=== PATIENT | male | born 1990 | race Caucasian/White ===

== ENCOUNTER 2016-06-30 00:02 | Emergency (ER) | payer OTHER ==
[~2016-06-30] VITALS: Ht 170.2 cm; Wt 70.0 kg
[2016-06-30 00:06] VITALS: TEMP 36.3; Ht 170.2 cm; Wt 70.0 kg
[2016-06-30] MEDS ORDERED: ONDANSETRON INJ 2 MG/ML 2 ML VIAL IV STA (00:18)
[2016-06-30] MEDS ORDERED: SODIUM CHLORIDE 0.9% 1000ML 1,000 ML IV ONE (00:30)
[2016-06-30] MEDS ORDERED: ONDANSETRON 8 MG/54 ML D5W ONE (00:34)
[2016-06-30 00:41] LABS: BASO % 0.3 %; BASO ABS # 0.03 K/uL (0-0.2); COMPLETE YES; EOS % 4.9 %; HEMATOCRIT 40.3 % (42-52); IG% 0.1 %; LYMPH % 49.7 %; LYMPH ABS # 4.33 K/uL (1.2-3.4); MEAN CELL VOLUME 88.8 fL (80-100); MEAN CORPUSCULAR HEMOGLOBIN 30.4 pg (25-34); MEAN CORPUSCULAR HGB CONC 34.2 g/dl (32-36); MEAN PLATELET VOLUME 9.4 fL (7.4-10.4); MONO % 6.8 %; NEUT % 38.2 %; PLATELET COUNT 260 K/uL (130-400); RED BLOOD COUNT 4.54 M/uL (4.7-6.1); WHITE BLOOD COUNT 8.72 K/uL (4.8-10.8)
[2016-06-30 00:50] LABS: PARTIAL THROMBOPLASTIN RATIO 0.9; PROTHROMBIN TIME (PATIENT) 10.6 SECONDS (9.0-12.0)
[2016-06-30 01:07] LABS: BUN/CREATININE RATIO 10.2 (10-20); CALCIUM 8.8 mg/dl (8.5-10.1); POTASSIUM 3.3 mmol/L (3.5-5.1)
[2016-06-30 01:10] LABS: ALB/GLOB RATIO 1.1 (0.9-2)
[2016-06-30] MEDS ORDERED: RANI150T3 PO (01:24)
[2016-06-30] MEDS ORDERED: CETI10TA84 PO (01:24)
[2016-06-30] MEDS ORDERED: AMPH12.5 PO (01:24)
[2016-06-30] MEDS ORDERED: ONDANSETRON HOME PACK 4MG OD TAB PO ONE (02:00)
[2016-06-30] MEDS ORDERED: NORCO 5/325MG HOME PACK PO ONE (02:00)
[2016-06-30 02:28] VITALS: BP 105/75; PULSE 52; O2SAT 99
--- NOTE | 2016-06-30 07:02 | DIAGNOSTIC IMAGING REPORT ---
CT OF THE HEAD WITHOUT CONTRAST CLINICAL HISTORY: Head injury. Vomiting COMPARISON STUDY: No previous studies for comparison. CT DOSE: 537.48 mGy.cm TECHNIQUE: Helical axial images of the head were obtained without IV contrast. Automated exposure control was utilized for the study. FINDINGS: No acute intracranial hemorrhage, midline shift or mass effect is present. Ventricular system is normal. Basilar cisterns are patent. There are no extra-axial collections. Michaud-white differentiation is maintained. There is no calvarial fracture. There is mild mucosal thickening of the ethmoid sinuses. IMPRESSION: 1. No acute intracranial findings. 2. No calvarial fracture. Electronically signed by: Georges Guerrero M.D. 06/30/2016 7:00 AM Dictated Date/Time: 06/30/2016 6:59 AM
--- NOTE | 2016-06-30 07:10 | EMERGENCY ROOM VISIT NOTE ---
History First contact with patient: 00:12 Chief Complaint: FALL Stated Complaint: FELL,DISORIENTED,POSSIBLE HEAD INJURY History of Present Illness The patient is a 25 year old male who presents to the Emergency Room with complaints of head injury after falling at home. The patient was evidently in the bathroom, when he slipped, fell, and struck his head. He is accompanied by his parents, who heard the fall, and immediately were able to attend to the patient. There was no loss of consciousness reported. The patient feels disoriented and nauseated. He does not have neck, chest, or extremity pain. He does not have lightheadedness, dizziness, chest pain, or palpitations before or after the event. He does not have a history of head injury in the past. He rates his current discomfort a 7/10 and nonradiating. Review of Systems More than 10 systems were reviewed and otherwise negative with the exception of history of present illness. Past Medical/Surgical History No chronic medical disease Family History No pertinent family history Social History Smoking Status: Never Smoker Housing Status: lives with family Current/Historical Medications Scheduled Amphetamine-Dextroamphetamine (Adderall), 1 TAB PO DAILY Cetirizine (Zyrtec), 10 MG PO DAILY Ranitidine Hcl (Zantac), 150 MG PO DAILY Allergies Coded Allergies: Peanut (Verified Allergy, Unknown, + TESTING, 06/30/16) Uncoded Allergies: MOLD (Allergy, Unknown, + TESTING, 06/30/16) Physical Exam Vital Signs Date Time Temp Pulse Resp B/P Pulse Ox O2 Delivery O2 Flow Rate FiO2 06/30/16 02:28 52 16 105/75 99 Room Air 06/30/16 01:20 66 20 103/69 100 Room Air 06/30/16 00:06 36.3 80 16 98/67 97 Room Air Pain Rating (0-10): 0 Physical Exam VITALS: Vitals are noted on the nurse's note and reviewed by myself. Vital signs stable. GENERAL: Well-developed, well-nourished, white male who is actively vomiting on my presentation to the emergency room. HEAD: Normocephalic atraumatic. EARS: External ear normal. External auditory canals clear, tympanic membranes pearly andrew without erythema or effusion bilaterally. EYES: Pupils equal round and reactive to light and accommodation. Conjunctivae without injection, sclerae without icterus. Extraocular movements intact. NOSE: Patent, turbinates without inflammation or discharge. MOUTH: Mucous membranes moist. Tonsils are not enlarged. Pharynx without erythema, blood, or exudate. Uvula midline. Airway patent. NECK: Supple without nuchal rigidity. No lymphadenopathy. No thyromegaly. Cervical spine is nontender. HEART: Regular rate and rhythm without murmurs gallops or rubs. LUNGS: Clear to auscultation bilaterally without wheezes, rales or rhonchi. No retractions or accessory muscle use. ABDOMEN: Positive normal bowel sounds x 4. Soft, nontender, without masses or organomegaly. No guarding or rebound tenderness. Medical Decision & Procedures ER Provider Diagnostic Interpretation: Preliminary Findings Only See Final Report For Complete Findings CT HEAD: No acute intracranial hemorrhage or mass effect. No displaced skull fracture. Trace mucosal thickening in ethmoid air cells. Laboratory Results 06/30/16 00:30 Red Blood Count 4.54, Mean Corpuscular Volume 88.8, Mean Corpuscular Hemoglobin 30.4, Mean Corpuscular Hemoglobin Concent 34.2, Mean Platelet Volume 9.4, Neutrophils (%) (Auto) 38.2, Lymphocytes (%) (Auto) 49.7, Monocytes (%) (Auto) 6.8, Eosinophils (%) (Auto) 4.9, Basophils (%) (Auto) 0.3, Neutrophils # (Auto) 3.33, Lymphocytes # (Auto) 4.33, Monocytes # (Auto) 0.59, Eosinophils # (Auto) 0.43, Basophils # (Auto) 0.03 06/30/16 00:30 Test 06/30/16 00:30 White Blood Count 8.72 K/uL (4.8-10.8) Red Blood Count 4.54 M/uL (4.7-6.1) Hemoglobin 13.8 g/dL (14.0-18.0) Hematocrit 40.3 % (42-52) Mean Corpuscular Volume 88.8 fL (80-100) Mean Corpuscular Hemoglobin 30.4 pg (25-34) Mean Corpuscular Hemoglobin Concent 34.2 g/dl (32-36) Platelet Count 260 K/uL (130-400) Mean Platelet Volume 9.4 fL (7.4-10.4) Neutrophils (%) (Auto) 38.2 % Lymphocytes (%) (Auto) 49.7 % Monocytes (%) (Auto) 6.8 % Eosinophils (%) (Auto) 4.9 % Basophils (%) (Auto) 0.3 % Neutrophils # (Auto) 3.33 K/uL (1.4-6.5) Lymphocytes # (Auto) 4.33 K/uL (1.2-3.4) Monocytes # (Auto) 0.59 K/uL (0.11-0.59) Eosinophils # (Auto) 0.43 K/uL (0-0.5) Basophils # (Auto) 0.03 K/uL (0-0.2) RDW Standard Deviation 40.7 fL (36.4-46.3) RDW Coefficient of Variation 12.7 % (11.5-14.5) Immature Granulocyte % (Auto) 0.1 % Immature Granulocyte # (Auto) 0.01 K/uL (0.00-0.02) Prothrombin Time 10.6 SECONDS (9.0-12.0) Prothromb Time International Ratio 1.0 (0.9-1.1) Activated Partial Thromboplast Time 23.0 SECONDS (21.0-31.0) Partial Thromboplastin Ratio 0.9 Anion Gap 9.0 mmol/L (3-11) Est Creatinine Clear Calc Drug Dose 104.7 ml/min Estimated GFR () 119.9 Estimated GFR (Non- 103.4 BUN/Creatinine Ratio 10.2 (10-20) Calcium Level 8.8 mg/dl (8.5-10.1) Total Bilirubin 0.2 mg/dl (0.2-1) Aspartate Amino Transf (AST/SGOT) 12 U/L (15-37) Alanine Aminotransferase (ALT/SGPT) 26 U/L (12-78) Alkaline Phosphatase 92 U/L (45-117) Total Protein 7.8 gm/dl (6.4-8.2) Albumin 4.0 gm/dl (3.4-5.0) Globulin 3.8 gm/dl (2.5-4.0) Albumin/Globulin Ratio 1.1 (0.9-2) Medications Administered Medications (Trade) Dose Ordered Sig/Lia Route Start Time Stop Time Status Last Admin Dose Admin Sodium Chloride (Nss 1000ml) 1,000 ml @ 999 mls/hr Q1H1M ONCE IV 06/30/16 00:30 06/30/16 01:30 DC 06/30/16 00:37 999 MLS/HR Ondansetron HCl (Zofran 8mg Iv) 8 mg STK-MED ONCE .ROUTE 06/30/16 00:34 06/30/16 00:35 DC 06/30/16 00:37 8 MG Acetaminophen/ Hydrocodone Bitart ([place] 5/325mg Home Pack) 1 homepack UD ONCE PO 06/30/16 02:00 06/30/16 02:01 DC 06/30/16 02:26 1 HOMEPACK Ondansetron HCl (ZOFRAN ODT 4MG Home Pack) 1 homepack UD ONCE PO 06/30/16 02:00 06/30/16 02:01 DC 06/30/16 02:26 1 HOMEPACK ED Course Physical exam and history were performed. Nursing notes and EMR were reviewed. Patient appears to have suffered a fall at home with subsequent head injury. The patient is vomiting on my arrival to the room. Because of this IV access was established and labs were obtained. He was hydrated with normal saline and given 8 mg IV Zofran. He was sent immediately to CAT scan for imaging. The patient's blood work is as above and was reviewed. He does not is minimally elevated white blood cell count or gross anemia, bandemia, or significant electrolyte imbalance. His CT scan is as above and does not show acute cranial hemorrhage or fracture. He felt much better after antiemetics. The patient was monitored for some time here in the emergency department without deterioration of his symptoms. Clinically I suspect that he has a head injury with concussion. The patient and I discussed options of care, and he will be treated conservatively with a home pack of Vicodin and Zofran. He is to follow with his primary care physician this week for further care and management. He was otherwise invited back to the ER with any new, worsening, or concerning symptoms. The chart was completed utilizing [employer] Voice [employer]ognition Software. Grammatical errors, random word insertions, pronoun errors, and incomplete sentences are an occasional consequence of this system due to software limitations, ambient noise, and hardware issues. Any formal questions or concerns about the content, text, or information contained within the body of this dictation should be directly addressed to the provider for clarification. . Medical Decision Differential diagnosis: Etiologies such as concussion, contusion, fracture, subdural hematoma, epidural hematoma, intraparenchymal hemorrhage, as well as other traumatic pathologies were entertained. Impression Primary Impression: Fall Additional Impression: Closed head injury Departure Information Dispostion Home / Self-Care Condition GOOD Forms HOME CARE DOCUMENTATION FORM, IMPORTANT VISIT INFORMATION Patient Instructions My [facility] Additional Instructions You were seen and evaluated today on an emergency basis only. This is not a substitute for, or an effort to provide, complete comprehensive medical care. It is not possible to recognize and treat all injuries or illnesses in a single emergency department visit. For this reason it is recommended that you followup with your primary care physician this week for ongoing care and evaluation. For baseline pain relief you may alternate ibuprofen and acetaminophen every 4 hours for pain control. Take 600 mg ibuprofen (Advil) and then 4 hours later take 1000 mg acetaminophen (Tylenol). Do not take more than 3000 mg acetaminophen in a single day. [place] (hydrocodone/acetaminophen) 5/325 mg (homepack) every 6 hours as needed for worsening breakthrough pain. Do not drink or drive on [place]. This medication will likely make you tired. Do not take [place] and Tylenol at the same time as both contain acetaminophen. [place] may cause constipation. You may wish to take an [id number] stool softener like Colace if this occurs. Zofran (homepack) 1 tablet every 6 hrs as needed for nausea. You are welcome to return to the emergency department anytime with new, worsening, or concerning symptoms. Problem Qualifiers
== END 2016-06-30 02:31 | disposition home or self-care (01) ==
LOC: C.EDB 00:03 → C.EDC 02:31
DX: S09.90XA Unspecified injury of head, initial encounter (principal); W01.0XXA Fall on same level from slipping, tripping and stumbling without subsequent striking against object, initial encounter; Y92.019 Unspecified place in single-family (private) house as the place of occurrence of the external cause; Z79.899 Other long term (current) drug therapy; Z91.010 Allergy to peanuts; Z91.09 Other allergy status, other than to drugs and biological substances

== ENCOUNTER → 2016-07-08 | Outpatient (CLI) | payer OTHER ==
[~2016-07-08] MED LIST: AMPH12.5 PO; CETI10TA84 PO; RANI150T3 PO
--- NOTE | 2016-07-10 17:13 | EEG Procedure Note ---
EEG Procedure Note Date of Service July 08, 2016. Start / End Times Start Time: 10:40 AM End Time: 11:01 AM Referring Physician LITO Dejesus History This is a 25-year-old male with syncopal episode. EEG for further evaluation of possible seizure etiology. Home Medication List Scheduled Amphetamine-Dextroamphetamine (Adderall), 1 TAB PO DAILY Cetirizine (Zyrtec), 10 MG PO DAILY Ranitidine Hcl (Zantac), 150 MG PO DAILY Description This is a 21 electrode EEG with a single channel dedicated to limited EKG. The electrodes were placed in accordance with the International 10-20 system. At the start of the recording the patient was in an awake state. Background was well organized and composed of symmetric mixed alpha and beta frequencies. There was a symmetric well-formed moderate amplitude 9 Hz posterior dominant rhythm that was reactive to eye opening and closure. Hyperventilation was not done. Intermittent photic stimulation at various frequencies produced no abnormalities. Sleep was indicated by symmetric sleep spindles. Interpretation This is a normal awake and asleep routine EEG. There was no electrographic seizures or epileptiform discharges. Clinical Correlation A normal EEG does not rule out epilepsy if there is a strong clinical suspicion.
== END | disposition home or self-care (01) ==
LOC: C.NEUR 10:10
PROVIDERS: ATTEND Nurse Practitioner Family
DX: R55 Syncope and collapse (principal)